=== PATIENT | male | born 1955 | race Caucasian/White ===

== ENCOUNTER 2020-09-06 15:29 | Inpatient (IN) ==
[2020-09-06] MEDS ORDERED: DIPH/TET/ACEL PERT BOOSTER VACCINE 0.5 ML VIAL IM ONE (15:45)
[2020-09-06] MEDS ORDERED: SODIUM CHLORIDE 0.9% 1,000 ML IV STA (15:45)
[2020-09-06] MEDS ORDERED: GENTAMICIN INJ 100 MG/100 ML PREMIX IV STA (15:46)
[2020-09-06] MEDS ORDERED: ceFAZolin 2,000 MG/50 ML DUPLEX IV ONE (15:46)
[2020-09-06 16:16] LABS: Basophils % 0.5 % (0.0-0.8); Eosinophils # 0.2 10*3/uL (0.0-0.87); Eosinophils % 2.3 % (0.00-10.9); Hematocrit 42.2 VOL% (42.0-52.0); Hemoglobin 13.9 GM/DL (14.0-18.0); Immature Granulocytes % 0.5 %; Immature Granulocytes Absolute 0.04 #; Lymphocytes # 1.3 10*3/uL (1.4-4.0); Lymphocytes % 16.2 % (21.2-54.2); Mean Corpuscular HGB Conc 32.9 GM/DL (32-36); Mean Corpuscular Volume 97.2 FL (87-102); Mean Platelet Volume 10.5 FL (9.6-12.0); Monocytes % 6.9 % (1.7-12.7); Neutrophils % 73.6 % (38.7-73.9); Platelet Count 154 T/CUMM (130-400); Red Blood Count 4.34 MC/CUMM (3.8-5.5); Red Cell Distribution Width 12.5 % (9.3-17.3); White Blood Count 7.7 T/CUMM (4-12)
[2020-09-06] MEDS ORDERED: fentaNYL 100 MCG/2 ML VIAL IV STA (16:26)
[2020-09-06] MEDS ORDERED: ceFAZolin 1,000 MG VIAL ONE (16:28)
[2020-09-06 16:30] LABS: Calcium 9.1 MG/DL (8.5-10.1); Osmolality,Calculated 279.5 MOS/KG (273-304)
[2020-09-06 16:43] LABS: PT Patient Result 11.4 SECS (10.5-12.0)
[2020-09-06] MEDS ORDERED: ROCURONIUM 50 MG/5 ML VIAL IV ONE (17:00)
[2020-09-06] MEDS ORDERED: propofoL 200 MG/20 ML VIAL IV ONE (17:00)
[2020-09-06] MEDS ORDERED: ONDANSETRON 4 MG/2 ML VIAL ONE (17:00)
[2020-09-06] MEDS ORDERED: DEXAMETHASONE 4 MG/1 ML VIAL ONE ×2 (17:00→17:53)
[2020-09-06] MEDS ORDERED: MIDAZOLAM 2 MG/2 ML VIAL ONE (17:00)
[2020-09-06] MEDS ORDERED: LIDOCAINE 2% 5 ML VIAL ONE (17:00)
[2020-09-06] MEDS ORDERED: fentaNYL 100 MCG/2 ML VIAL ONE ×2 (17:00→19:18)
[2020-09-06] MEDS ORDERED: SUCCINYLCHOLINE 200 MG/10 ML VIAL ONE (17:00)
[2020-09-06] MEDS ORDERED: SEVOFLURANE 1 UNIT/15 MINUTE INH ONE ×9 (17:04→19:33)
[2020-09-06] MEDS ORDERED: FAMOTIDINE 20 MG/2 ML VIAL IV STA (17:12)
[2020-09-06] MEDS ORDERED: METOCLOPRAMIDE 10 MG/2 ML VIAL IV STA (17:12)
[2020-09-06] MEDS ORDERED: METOCLOPRAMIDE 10 MG/2 ML VIAL ONE (17:13)
[2020-09-06] MEDS ORDERED: FAMOTIDINE 20 MG/2 ML VIAL IV ONE (17:14)
[2020-09-06] MEDS ORDERED: KETOROLAC 30 MG/1 ML VIAL ONE (17:16)
[2020-09-06] MEDS ORDERED: ACETAMINOPHEN INJ 1,000 MG/100 ML VIAL IV ONE (17:16)
[2020-09-06] MEDS ORDERED: GLUCAGON 1 MG VIAL IM PRN (17:32)
[2020-09-06] MEDS ORDERED: MORPHINE 4 MG/1 ML VIAL IV PRN (17:32)
[2020-09-06] MEDS ORDERED: ONDANSETRON 4 MG/2 ML VIAL IV PRN (17:32)
[2020-09-06] MEDS ORDERED: DEXTROSE 50% 25 GM/50 ML VIAL IV PRN (17:32)
[2020-09-06] MEDS ORDERED: hydrALAZINE 20 MG/1 ML VIAL IV PRN (17:42)
[2020-09-06] MEDS ORDERED: NEOSTIGMINE 10 MG/10 ML VIAL ONE (17:59)
[2020-09-06] MEDS ORDERED: GLYCOPYRROLATE 0.4 MG/2 ML VIAL ONE (17:59)
[2020-09-06] MEDS ORDERED: SODIUM CHLORIDE 0.9% 1,000 ML IV SCH (18:00)
[2020-09-06] MEDS ORDERED: diphenhydrAMINE CAP 25 MG CAPSULE PO SCH (21:00)
[2020-09-06] MEDS ORDERED: HYDROmorphone 2 MG/1 ML VIAL IV PRN (22:02)
[2020-09-06] MEDS ORDERED: LACTATED RINGERS 1,000 ML IV ONE (22:26)
[2020-09-07] MEDS: ceFAZolin 2,000 MG/50 ML DUPLEX IV SCH ×2 (02:00→11:57)
[2020-09-07 05:28] LABS: Basophils % 0.1 % (0.0-0.8); Hematocrit 34.8 VOL% (42.0-52.0); Hemoglobin 11.5 GM/DL (14.0-18.0); Immature Granulocytes % 0.4 %; Immature Granulocytes Absolute 0.03 #; Lymphocytes # 0.8 10*3/uL (1.4-4.0); Lymphocytes % 9.7 % (21.2-54.2); Mean Corpuscular Volume 97.5 FL (87-102); Mean Platelet Volume 11.3 FL (9.6-12.0); Monocytes % 6.1 % (1.7-12.7); Neutrophils % 83.7 % (38.7-73.9); Platelet Count 129 T/CUMM (130-400); Red Blood Count 3.57 MC/CUMM (3.8-5.5); Red Cell Distribution Width 12.6 % (9.3-17.3); White Blood Count 8.2 T/CUMM (4-12)
[2020-09-07 05:36] LABS: Calcium 8.1 MG/DL (8.5-10.1); Osmolality,Calculated 279.5 MOS/KG (273-304)
[2020-09-07] MEDS ORDERED: CHOLECALCIFEROL 1,000 UNIT TABLET PO SCH (09:00)
[2020-09-07] MEDS ORDERED: PANTOPRAZOLE 40 MG TABLET PO SCH (09:00)
[2020-09-07] MEDS ORDERED: ASCORBIC ACID 500 MG TABLET PO SCH (09:00)
[2020-09-07 12:01] VITALS: BP 121/62
== END 2020-09-07 13:00 | disposition home or self-care (01) | DRG 493 ==
LOC: N.ED 15:29 → N.3E 17:20
PROVIDERS: ADMIT Hospitalist; ATTEND Hospitalist